=== PATIENT | female | born 1985 | race African-American/Black ===

== ENCOUNTER 2023-06-03 18:25 | Emergency (ER) | payer MEDICAID, OTHER ==
[2023-06-03] MEDS ORDERED: Lidocaine 2% Viscous 10 mL, Alum & Magn 30 mL SSW SCH ×2 (19:30→21:00)
[2023-06-03] MEDS ORDERED: Sucralfate 1 GM TAB PO SCH (19:30)
[2023-06-03] MEDS ORDERED: Famotidine/PF 20 mg/2ml Vial ONE (19:37)
[2023-06-03] MEDS ORDERED: Sucralfate 1 GM/10 ML UDCUP ONE (19:37)
[2023-06-03] MEDS ORDERED: Ondansetron PF 4 MG/2 ML Vial ONE (19:37)
[2023-06-03 19:47] LABS: #Basophils 0.1 10x3/uL (0.0-0.2); #Eosinphils 0.1 10x3/uL (0.0-0.5); #Monocytes 0.5 10x3/uL (0.0-1.1); %Basophils 0.7 % (0.0-2.0); %Eosinophils 1.5 % (0.0-6.0); %Lymphocytes 38.5 % (18.0-47.0); Hemoglobin 10.9 g/dL (12.0-15.5); Mean Corpuscular HGB CONC 32.1 g/dL (32.0-36.0); Mean Corpuscular Hemoglobin 27.5 pg (27.0-33.0); Mean Corpuscular Volume 85.9 fl (81.6-98.3); Mean Platelet Volume 10.1 fl (7.4-10.4); Platelet Count 414 10x3/uL (150-450); RBC Distribution Width 14.6 % (11.5-14.5); Red Blood Cell (RBC) Count 3.96 10x6/uL (3.90-5.03); White Blood Cell (WBC) Count 7.5 10x3/uL (3.5-10.5)
[2023-06-03 20:01] LABS: ALT (SGPT) 13 U/L (8-55); AST (SGOT) 16 U/L (5-34); Albumin 4.3 g/dL (3.5-5.0); Alkaline Phosphatase 79 U/L (40-110); Anion Gap 12 mmol/L (10-20); BUN (Urea Nitrogen) 11 mg/dL (7.0-18.7); Bilirubin, Total 0.2 mg/dL (0.2-1.2); Calc. Creatinine Clearance 0 mL/min (70-130); Calcium 9.2 mg/dL (7.8-10.44); Carbon Dioxide 25 mmol/L (22-29); Chloride 107 mmol/L (98-107); Estimated GFR 97; Globulin 3.5 g/dL (2.4-3.5); Glucose 81 mg/dL (70-105); Lipase 40 U/L (8-78); Potassium 3.4 mmol/L (3.5-5.1); Protein, Total 7.8 g/dL (6.0-8.3); Sodium 141 mmol/L (136-145)
== END 2023-06-03 21:14 | disposition home or self-care (01) ==
LOC: CSHERS 18:25
DX: R10.13 Epigastric pain (principal)
CPT/HCPCS: 80053; 83690; 85025; 96374; 96375; J2405; S0028

== ENCOUNTER 2024-02-12 10:07 | Emergency (ER) | payer OTHER ==
[2024-02-12] MEDS ORDERED: Ibuprofen 200 MG TAB ONE (11:29)
[2024-02-12] MEDS ORDERED: Ondansetron ODT 4 MG TAB ONE (11:30)
[2024-02-12] MEDS ORDERED: Acetaminophen 500 MG TAB ONE (11:48)
== END 2024-02-12 14:21 | disposition home or self-care (01) ==
LOC: CSHERS 10:07
DX: J10.1 Influenza due to other identified influenza virus with other respiratory manifestations (principal)
CPT/HCPCS: 71046; 87428; 99284; Q0162